=== PATIENT | female | born 1945 | race Caucasian/White ===

== ENCOUNTER 2025-05-13 10:11 | Day surgery (SDC) | payer OTHER, SELFPAY ==
[2025-04-23 13:27] VITALS: BMI 26.6
[2025-04-23 13:27] LABS: Hematocrit 37.8 % (37.0-47.0); Hemoglobin 13.7 g/dL (12.0-16.0); Mean Corp Hgb Conc. 36.2 g/dL (33.0-37.0); Mean Corpuscular Volume 85.7 fL (81.0-99.0); Nucleated Red Blood Cells % 0 %; Platelet Count 226 10^3/uL (130-400); Red Cell Dist. Width 13.2 % (11.5-14.5)
[2025-04-23 14:06] LABS: ALT (SGPT) 55 U/L (0-35); AST (SGOT) 69 U/L (14-36); Albumin 4.4 g/dl (3.5-5.0); Alkaline Phosphatase 93 U/L (38-126); Blood Urea Nitrogen 17 mg/dl (7-17); Calcium 9.7 mg/dl (8.4-10.2); Carbon Dioxide 34 mmol/L (22-30); Chloride 92 mmol/L (98-107); Estimated Creatinine Clearance 51 ml/min; Glucose 92 mg/dl (70-99); INR 1.33; Magnesium 1.5 mg/dl (1.6-2.3); PT 16.8 Sec (11.4-14.6); Potassium 3.2 mmol/L (3.5-5.1); Sodium 133 mmol/L (135-145); Total Protein 7.3 g/dl (6.3-8.2); eGFR > 60.00
[2025-05-13] VITALS (18 sets, daily range): BP systolic 94–152; BP diastolic 53–79
[2025-05-13 13:30] LABS: ACT-LR - POC 234 Seconds (116-155)
[2025-05-13 13:57] LABS: Albumin 3.5 g/dl (3.5-5.0); Estimated Creatinine Clearance 58 ml/min; eGFR > 60.00
--- NOTE | 2025-05-13 14:03 | ITS.CL.ABL ---
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
Ablation
Procedure Report:
ELECTROPHYSIOLOGY ABLATION STUDY
DATE:: May 13, 2025�����������������������������REFERRING: Dr. Pato Enrique
INDICATION: Persistent supraventricular tachycardia in the form of atrial fibrillation.��History of dual-chamber pacemaker in 2022 for sick sinus syndrome
HISTORY: See H and P.��As above. Persistent A-fib for 3 months which is symptomatic with dyspnea on exertion
ANTIARRHYTHMIC DRUG: Metoprolol
PRE-PROCEDURE IZABEL: No intracardiac thrombus
PRESENTING RHYTHM: Atrial fibrillation
'TIME-OUT':��called and confirmed.
SEDATION/ANESTHESIA:��provided via the anesthesia department using general anesthesia (LMA).
INTRAVENOUS/ARTERIAL ACCESS:
Right femoral venous -8Fr
Left femoral venous - 8 Fr, 6 Fr with the 8 Georgian upgraded to a 10 Georgian long Brite tip sheath
[id number] suture bilaterally
Ultrasound guidance for bilateral femoral vein access was utilized by me to obtain access with demonstration of normal anatomy
CHADS-VASC Score:
HAS-Bled Score
PROCEDURE:
1.��A decapolar CS catheter was placed within the CS for mapping and pacing.��This was also used as the reference catheter for the 3-D map. At the beginning of the procedure the patient had device reprogrammed to AAI�DDD with ventricular threshold
and atrial sensing stable pre and post procedure. No change in lead parameters postprocedure in sinus rhythm. At the end of the procedure the patient was programmed to AAIR�DDDR 50 to 140 bpm.
2. The intracardiac ultrasound catheter was positioned in the RA to identify the FO for targeting of transseptal puncture, assist��in identification of the pulmonary vein ostia, monitoring pre and post ablation pulmonary vein flow velocities,
monitoring for 'bubble' formation during RF application as a sign of thermal injury,��and to monitor for pericardial effusion during mapping and ablation procedure.���Left atrial size, LV ejection fraction, and pulmonary vein flows were monitored
pre and post ablation procedure. The other valves were inspected and found to be free of significant regurgitation or stenosis.
3.��Half of the calculated heparin bolus was administered prior to the first transeptal puncture.��Transseptal puncture was performed to diagnose RA and LA pressure so that safety of LA mapping and ablation could be further assessed, and to access
the left atrium and pulmonary veins for mapping and ablation.��This entailed advancing an 16.8 Fr RF wire, with dilator into the superior vena cava and withdrawing both (monitoring intracardiac ultrasound, fluoroscopy and tip pressure) with the tip
oriented toward the atrial septum.��The fossa ovalis was engaged (indicated by sudden displacement of the sheath tip as well as tenting of the fossa seen on intracardiac ultrasound).��Left atrial access required a pass with the Brockenbrough needle
extended.��Left atrial catheter position was confirmed by pressure monitoring (RA mean pressure 6 mm Hg and LA mean presure 20 mm Hg at end of procedure 20 mmHg), LA saturation (99%),��as well as fluoroscopy.��The sheath was advanced over the
dilator and positioned in the left atrium.��The remainder of the calculated heparin bolus was administered and heparin was
infused to maintain ACT at 300 -350 seconds throughout the case.
4.��RA pacing was performed via the proximal decapolar poles and LA pacing was performed via the distal decapolr poles.
5. A quadrapolar catheter was first positioned at the His position for His Bundle recording which was tagged via the 3-D Navex sytem, and then passed to the RVA for RV pacing and recording.
6. The Penta spline and grid catheter placed in each of the LIPV, LSPV, RSPV and the RIPV.��
7.��Next, a 3-D map was created using Navex.���A 3-D reconstructed CT image was compared to the 3-D Navex map to assist in anatomic interpretation, mapping and ablation.��The CT image and the NavX image were fused.
8. A total of 50 lesions were given in olive basket and flower poses. All of and basket poses were given to each of the 4 pulmonary veins rendering entrance block. Atrial fibrillation persisted and in the flower pose roof posterior wall and floor
lines were given rendering the posterior wall electrically silent. As atrial fibrillation continues to persist with slowing of the atrial fibrillation frequency in both atria we converted the patient to sinus rhythm 200 J synchronized biphasic
shock with atrial pacing and cantwell ventricular conduction. Entrance and exit block was then confirmed in all 4 pulmonary veins as well as the roof posterior wall floor of the left atrium.
Pacing in both atria down to atrial refractoriness did not induce any other tachyarrhythmia.
9. Lead parameters are stable postprocedure and the patient had similar parameters programmed to preprocedure.
TOTAL FLOURO TIME: 11.1 minutes
TOTAL RF DURATION: 0 minutes
REVERSAL OF HEPARIN: 35 mg of protamine, slow IV administration
COMPLICATIONS:
None
Intracardiac US shows no pericardial effusion post ablation.
SUMMARY:��
Complex left atrial mapping and ablation.
Isolation of all 4 pulmonary veins as well as the posterior wall roof and floor of the left atrium with the Penta spline catheter.
RECOMMENDATIONS:
1. Admit to monitored bed.
2. Resume anticoagulation
3.� Anticipate discharge May 14, 2025
4.��Uninterrupted anticoagulation greater than 3 months
Copy to: Dr. Pato Enrique
[2025-05-13 14:07] LABS: ALT (SGPT) 36 U/L (0-35); AST (SGOT) 44 U/L (14-36); Alkaline Phosphatase 77 U/L (38-126); Blood Urea Nitrogen 15 mg/dl (7-17); Calcium 8.2 mg/dl (8.4-10.2); Carbon Dioxide 28 mmol/L (22-30); Chloride 106 mmol/L (98-107); Glucose 95 mg/dl (70-99); Magnesium 1.8 mg/dl (1.6-2.3); Potassium 3.6 mmol/L (3.5-5.1); Sodium 139 mmol/L (135-145); Total Protein 6.2 g/dl (6.3-8.2)
[2025-05-13] MEDS: MAGNESIUM OXIDE 400 MG PO (15:22)
[2025-05-13] MEDS: KCL 20 MEQ PO (15:23)
--- NOTE | 2025-05-13 17:22 | PTCARENOTE ---
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 VSS
[2025-05-13] MEDS: TOPROL XL 37.5 MG PO (18:41)
[2025-05-13] MEDS: XARELTO 20 MG PO (20:11)
[2025-05-13] MEDS: SEROQUEL 100 MG PO (22:54)
--- NOTE | 2025-05-13 23:55 | PTCARENOTE ---
Received pt at change of shift OOB in chair. b/l groin sites C/D/I, no bleeding or hematoma noted at this time. A-paced on tele, HR 50's-60's. pt denies any CP or SOB at this time. Encouraged pt to call RN with any questions or concerns. Call noonan
within reach.
--- NOTE | 2025-05-14 02:29 | DOWNTIME ---
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 Downtime documentation of patient's care, including medication administrations, has been reconciled in the electronic record per guidelines. Refer to the
patient's paper chart under the miscellaneous tab to see printed paper medication records and downtime forms.
[2025-05-14 03:13] VITALS: BP 110/62
[2025-05-14 03:47] LABS: Hematocrit 34.5 % (37.0-47.0); Hemoglobin 11.5 g/dL (12.0-16.0); Mean Corp Hgb Conc. 33.3 g/dL (33.0-37.0); Mean Corpuscular Volume 92.2 fL (81.0-99.0); Platelet Count 185 10^3/uL (130-400); Red Cell Dist. Width 14.6 % (11.5-14.5)
[2025-05-14 04:12] LABS: ALT (SGPT) 36 U/L (0-35); AST (SGOT) 84 U/L (14-36); Albumin 3.6 g/dl (3.5-5.0); Alkaline Phosphatase 62 U/L (38-126); Blood Urea Nitrogen 26 mg/dl (7-17); Calcium 8.6 mg/dl (8.4-10.2); Carbon Dioxide 27 mmol/L (22-30); Chloride 102 mmol/L (98-107); Estimated Creatinine Clearance 41 ml/min; Glucose 111 mg/dl (70-99); Magnesium 2.2 mg/dl (1.6-2.3); Potassium 4.3 mmol/L (3.5-5.1); Sodium 135 mmol/L (135-145); Total Protein 6.1 g/dl (6.3-8.2); eGFR 57.31
--- NOTE | 2025-05-14 07:51 | W.PN.CARDCBS ---
Addendum entered and electronically signed by Tavon Love MD 05/14/25 09:03:
Patient seen and examined
Agree with MILI Baker's note and assessment
Agree with plan
Uneventful overnight
Sinus rhythm on telemetry
Examination:
Cor regular no murmur
Nonfocal neurologically
Alert and x 3
JVP 6
Lungs equal to auscultation and clear
Extremities without edema and well-perfused
PCP: Bairon Jasso MD
CDY: Pato Enrique MD
Impression:
Symptomatic persistent atrial fibrillation
post PVI 05/13/25
SSS/PPM
Hypertension.
Hyperlipidemia.
Osteoarthritis.
Mitral valve stenosis, mild, peak mean gradient of 13/5 mmHg.
Osteopenia.
Venous insufficiency with varicosities.
Anxiety and depression.
Remote tobacco abuse.
elevated transaminase
Hypokalemia
Plan:
post ablation feels good
Groins stable
OAC Xarelto
continue metoprolol xl
Activity restrictions reviewed-can resume work this weekend
f/u Dr. Enrique in 1 mo
home today
Original Note:
Today's Communication / Plan
-
post ablation feels good
OAC Xarelto
continue metoprolol
home today
Impression / Plan
-
PCP: Bairon Jasso MD
CDY: Pato Enrique MD
Impression:
Symptomatic persistent atrial fibrillation
post PVI 05/13/25
SSS/PPM
Hypertension.
Hyperlipidemia.
Osteoarthritis.
Mitral valve stenosis, mild, peak mean gradient of 13/5 mmHg.
Osteopenia.
Venous insufficiency with varicosities.
Anxiety and depression.
Remote tobacco abuse.
elevated transaminase
Hypokalemia
Plan:
post ablation feels good
Groins stable
tele Apaced with RBBB
K/Mg repleted yesterday, keep K >4, Mg >2
OAC Xarelto
continue metoprolol xl
Activity restrictions reviewed
f/u Dr. Enrique in 1 mo
home today
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
Subjective
Date of Service: May 14, 2025
denies cp, sob
Objective
Labs:
05/14/25 03:22
05/14/25 03:22
Labs
Hgb 11.5 g/dL (12.0-16.0) L 05/14/25 03:22
Hct 34.5 % (37.0-47.0) L 05/14/25 03:22
Plt Count 185 10^3/uL (130-400) 05/14/25 03:22
PT 16.8 Sec (11.4-14.6) H 04/23/25 13:14
INR 1.33 04/23/25 13:14
Sodium 135 mmol/L (135-145) 05/14/25 03:22
Potassium 4.3 mmol/L (3.5-5.1) 05/14/25 03:22
BUN 26 mg/dl (7-17) H 05/14/25 03:22
Creatinine 1.0 mg/dL (0.6-1.0) 05/14/25 03:22
Glucose 111 mg/dl (70-99) H 05/14/25 03:22
Vital Signs and I&O:
Vital Signs
Temp Pulse Resp BP Pulse Ox
97.8 F 66 16 110/62 95
05/14/25 03:13 05/14/25 06:00 05/14/25 03:13 05/14/25 03:13 05/14/25 03:13
Vital Signs
Temp Pulse Resp BP Pulse Ox
97.8 F 66 16 110/62 95
05/14/25 03:13 05/14/25 06:00 05/14/25 03:13 05/14/25 03:13 05/14/25 03:13
Intake & Output
05/12/25 05/13/25 05/14/25 05/15/25
06:59 06:59 06:59 06:59
Intake Total 1580 / 1580
Balance 1580 / 1580
Physical Exam
Physical Exam
NAD< AOx3
S1, S2, RRR, III/ WALDEMAR at apex
CTAB, non labored, no wheeze
SNTND Bsx4
b/l groins c/d/i no HT, soft
[2025-05-14 07:57] VITALS: BP 111/52
[2025-05-14] MEDS: TOPROL XL 12.5 MG PO (08:52)
[2025-05-14] MEDS: PROZAC 40 MG PO (08:53)
[2025-05-14] MEDS: ORETIC 25 MG PO (08:54)
[2025-05-14] MEDS: COZAAR 100 MG PO (08:55)
[2025-05-14] MEDS: PROZAC 10 MG PO (08:55)
--- NOTE | 2025-05-14 09:36 | W.DS.TRANS ---
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
-
Discharge Instructions:
Discharge Diagnosis/Procedures AFib, s/p ablation
Diet Low Cholesterol
Driving Restrictions No driving for 24 hours
Instructions:
Stand-Alone Forms: DC Instructions- Cath/EP Lab
Changes to Home Medications: No
Discharge Medications:
DC Medications w/original date entered in [facility]
fluoxetine 10 mg tablet 10 mg PO DAILY 04/14/23
losartan 100 mg-hydrochlorothiazide 25 mg tablet 1 tab PO DAILY 04/14/23
quetiapine 50 mg tablet (Seroquel) 100 mg PO HS 04/14/23
metoprolol succinate 25 mg tablet,extended release 24 hr 12.5 mg PO DAILY 04/21/25
metoprolol succinate 25 mg tablet,extended release 24 hr 37.5 mg PO QPM 04/21/25
multivitamin-ferrous fumarate-folic acid 18 mg-400 mcg tablet (Women's Daily Multivitamin) 1 tab PO QPM 04/21/25
rivaroxaban 20 mg tablet (Xarelto) 20 mg PO QPM 04/21/25
fluoxetine 40 mg capsule 40 mg PO DAILY 05/13/25
Home Medication Changes
Pending Results: No
--- NOTE | 2025-05-14 10:17 | PTCARENOTE ---
Patient oob in the chair this morning, feels tired but denies any pain or discomfort. Bilateral groin sites are clean, dry and intact. Patient is ok for discharge at noon if stable.
[2025-05-14] MEDS: FLUZONE HIGH-DOSE 2025-26 0.5 ML IM (11:12)
[2025-05-14 11:22] VITALS: BP 130/60
[2025-05-14 11:52] VITALS: BP 136/76
--- NOTE | 2025-05-14 11:56 | PTCARENOTE ---
Patient ambulating in her room, bilateral groin sites are dry and intact and VSS. Reviewed discharge instructions and follow up and she states her understanding. Patient is calling an uber for transportation home. Will take her to d/c area when her
ride has arrived.
--- NOTE | 2025-05-14 15:25 | CM ---
spoke to pt in room, she is prev indep, lives alone in an apt with an elevator. no dc planning needs or dme's noted. plan is for dc to home when medically stable.
== END 2025-05-14 15:40 | disposition home or self-care (01) ==
LOC: CATH 10:11
PROVIDERS: Nurse Practitioner; Nurse Practitioner Adult Health; ATTENDING PHYSICIAN Internal Medicine Cardiovascular Disease; FAMILY PHYSICIAN Internal Medicine; OTHER PHYSICIAN Internal Medicine Cardiovascular Disease
DX: I48.19 Other persistent atrial fibrillation (principal); E78.5 Hyperlipidemia, unspecified; E83.42 Hypomagnesemia; E87.1 Hypo-osmolality and hyponatremia; E87.6 Hypokalemia; F32.A Depression, unspecified; F41.9 Anxiety disorder, unspecified; I05.0 Rheumatic mitral stenosis; I10 Essential (primary) hypertension; I45.10 Unspecified right bundle-branch block; I47.10 Supraventricular tachycardia, unspecified; I49.5 Sick sinus syndrome; I83.90 Asymptomatic varicose veins of unspecified lower extremity; I87.2 Venous insufficiency (chronic) (peripheral); M19.90 Unspecified osteoarthritis, unspecified site; Z01.810 Encounter for preprocedural cardiovascular examination; M85.80 Other specified disorders of bone density and structure, unspecified site; Z87.891 Personal history of nicotine dependence; Z79.01 Long term (current) use of anticoagulants; Z79.899 Other long term (current) drug therapy; Z96.653 Presence of artificial knee joint, bilateral
CPT/HCPCS: C1732; C1894; C1730; C1769; C1892; 36415; 75572; 80053; 83735; 85025; 85027; 85347; 85610; 86850; 86900; 86901; 90662; 93005; 93656; 93657; C1733; C1766; G0008; Q9967